=== PATIENT | female | born 1970 | race Caucasian/White ===

== ENCOUNTER 2025-05-25 13:57 | Emergency (ER) | payer SELFPAY ==
[~2025-05-25] VITALS: Ht 157.5 cm; Wt 48.1 kg
[2025-05-25] MEDS: IV NS 0.9% 1,000 ML BAG IV ONE (14:21)
[2025-05-25] MEDS ORDERED: ONDANSETRON HCL/PF 4 MG/2 ML VIAL ONE (14:21)
[2025-05-25] MEDS: ONDANSETRON HCL/PF 4 MG/2 ML VIAL IVP ONE (14:22)
[2025-05-25 14:38] LABS: PLATELET COUNT (AUTO) 211 K/uL (150-450); RED BLOOD CELL COUNT(AUTO) 4.62 MIL/uL (4.0-5.2); RED CELL DISTRIBUTION WIDTH 12.7 % (11.5-15.0); WHITE BLOOD COUNT (AUTO) 5.8 K/uL (4.3-11.0)
[2025-05-25] MEDS ORDERED: KETOROLAC TROMETHAMINE INJ 30 MG/ML VIAL ONE (14:41)
[2025-05-25 14:52] LABS: CALCIUM, SERUM 8.8 mg/dL (8.5-10.1); CREATININE 0.6 mg/dL (0.6-1.3); SODIUM SERUM 138.0 mmol/L (136-145); UREA NITROGEN, BLOOD 9.0 mg/dL (7-18)
[2025-05-25] MEDS: KETOROLAC TROMETHAMINE INJ 30 MG/ML VIAL IV ONE (14:57)
[2025-05-25 14:58] LABS: ASPARTATE AMINOTRANSFERASE 27.0 U/L (15-37); TOTAL PROTEIN, SERUM 7.7 g/dL (6.4-8.2)
[2025-05-25 15:17] LABS: APPEARANCE,URINE CLEAR (CLEAR); BLOOD, URINE NEGATIVE Ery/uL (NEGATIVE); LEUKOCYTE ESTERASE ,URINE NEGATIVE (NEGATIVE); NITRITE, URINE NEGATIVE (NEGATIVE); UGLUCOSE NEGATIVE (NEGATIVE)
[2025-05-25] MEDS ORDERED: ACETAMINOPHEN ES 500 MG TABLET ONE (16:07)
[2025-05-25] MEDS: ACETAMINOPHEN 325 MG TABLET PO ONE (16:14)
[2025-05-25 16:27] VITALS: BP 97/62; TEMP 98.2; O2SAT 99
[2025-05-25] MEDS ORDERED: ONDA4TAB5 PO (16:55)
== END 2025-05-25 17:03 | disposition home or self-care (01) ==
LOC: ER 14:02
DX: G43.909 Migraine, unspecified, not intractable, without status migrainosus (principal); R11.2 Nausea with vomiting, unspecified; Z87.11 Personal history of peptic ulcer disease; Z88.0 Allergy status to penicillin; R10.20 Pelvic and perineal pain unspecified side
CPT/HCPCS: 99284; 96374; 96361; 96375; 87804 ×2; 85025; 80048; 83690; 80076; 84703; 81003; 36415; 84702; J1885; J2405; J7030